=== PATIENT | female | born 1955 | race Caucasian/White ===

== ENCOUNTER 2025-02-28 11:11 | Emergency (ER) | payer MEDICARE, BC ==
[~2025-02-28] VITALS: Ht 170.2 cm; Wt 80.0 kg
[2025-02-28 11:18] VITALS: O2SAT 99
[2025-02-28 11:47] LABS: BASOPHILS % 0.6 % (0.0-2.0); EOSINOPHILS % 1.2 % (0.0-5.0); HEMATOCRIT. 34.5 % (36.0-48.0); HEMOGLOBIN. 11.5 g/dL (12.0-16.0); LYMPHOCYTES % 12.0 % (20.0-50.0); MEAN PLATELET VOLUME 7.6 fl (7.4-10.4); MONOCYTES % 6.6 % (2.0-8.0); NEUTROPHILS % 79.6 % (40.0-76.0); PLATELET 304 x1000/uL (130-400); RED BLOOD CELL COUNT 3.75 mill/uL (4.2-5.4); RED CELL DISTRIBUTION WIDTH 12.8 % (11.6-14.6)
[2025-02-28 12:03] LABS: CREATININE 3.2 mg/dL (0.6-1.0); TROPONIN I HIGH SENSITIVITY < 4 ng/L (3.0-34); UREA NITROGEN BLOOD 55 mg/dL (9-23)
[2025-02-28] MEDS: ACETAMINOPHEN 325MG TABLET PO ONE (12:07)
[2025-02-28] MEDS ORDERED: TOPUD PO (13:29)
[2025-02-28 14:00] VITALS: BP 107/71; PULSE 76; RESP 18; TEMP 37; O2SAT 99
== END 2025-02-28 14:16 | disposition home or self-care (01) ==
LOC: ER 11:11
DX: R55 Syncope and collapse (principal); M79.652 Pain in left thigh; Z79.84 Long term (current) use of oral hypoglycemic drugs; I10 Essential (primary) hypertension; E11.9 Type 2 diabetes mellitus without complications; C50.919 Malignant neoplasm of unspecified site of unspecified female breast; Z85.3 Personal history of malignant neoplasm of breast; W19.XXXA Unspecified fall, initial encounter; Y93.89 Activity, other specified; Y92.89 Other specified places as the place of occurrence of the external cause; Y99.8 Other external cause status
CPT/HCPCS: 36415; 71045; 73552; 80048; 84484; 85025; 93005; 99285